=== PATIENT | male | born 1975 | race Caucasian/White ===

== ENCOUNTER 2023-05-15 17:21 | Emergency (ER) | payer OTHER ==
[2023-05-15] MEDS ORDERED: ACETAMINOPHEN 500 MG TABLET (FP) PO ONE (17:48)
[2023-05-15 18:07] VITALS: BP 148/87; PULSE 79; RESP 16; TEMP 98; BMI 31.0
[2023-05-15] MEDS ORDERED: SULFAMETHOXAZOLE/TRIMETHOPRIM 800MG/160MG D.S. TABLET PO ONE (18:23)
[2023-05-15] MEDS ORDERED: CEPHALEXIN MONOHYDRATE 500 MG CAPSULE (UD) PO ONE (18:23)
[2023-05-15] MEDS ORDERED: SULFAMETHOXAZOLE/TRIMETHOPRIM 800MG/160MG D.S. TABLET ONE (18:28)
[2023-05-15] MEDS ORDERED: CEPHALEXIN MONOHYDRATE 500 MG CAPSULE (UD) ONE (18:28)
== END 2023-05-15 19:18 | disposition home or self-care (01) ==
LOC: FER 17:21
DX: M25.561 Pain in right knee (principal); L03.115 Cellulitis of right lower limb
CPT/HCPCS: 73562-TC-RT-FY; 76882-TC-RT; 99284-25